=== PATIENT | male | born 1945 | race Caucasian/White ===

== ENCOUNTER → 2021-08-26 | Outpatient (CLI) | payer OTHER, MEDICARE ==
[~2021-08-26] MED LIST: CALTRATE-600 W1 EACH PO; CARVEDILOL6.25 M1 PO; LO-DOSE ASPIRIN81 M1 PO; LOSARTAN-HCTZ1 EAC3 PO; MULTI VITAMIN1 EACH PO; PRAVASTATIN SOD40 MG PO
== END ==
LOC: LAB 00:57
PROVIDERS: ATTEND Student in an Organized Health Care Education/Training Program
DX: Z01.812 Encounter for preprocedural laboratory examination (principal); Z20.822 Contact with and (suspected) exposure to COVID-19

== ENCOUNTER → 2021-08-28 | Outpatient (CLI) | payer OTHER ==
[~2021-08-28] VITALS: Ht 182.9 cm; Wt 112.5 kg
--- NOTE | 2021-08-28 16:11 | EKG ---
[facility] [place] [address] ELECTROCARDIOGRAM REPORT Name: REYNALDO DELGADO Room #: REG NORRIS Tijerina#: [id number] Admission: 08/28/21 Attend Phys: Jayy Collado Discharge: Date of : 49 Report #: [id number] [facility] Test Date: 2021-08-28 Test Time: 12:28:42 Pat Name: REYNALDO DELGADO Department: Room: Gender: Investor Relations Specialist: MAI : 1945 Requested By: Holli Jenkins Order Number: [id number] MD: Jono Edwards Measurements Intervals [place] Rate: 74 P: 48 VT: 189 QRS: 9 QRSD: 160 T: -25 QT: 425 QTc: 472 Interpretive Statements Sinus rhythm Right bundle branch block Inferior infarct, age indeterminate Baseline wander in lead(s) V2 No previous ECG available for comparison Electronically Signed On 08-28-2021 16:11:37 LEASING ASSISTANT by Jono Edwards [email or web address] <ELECTRONICALLY SIGNED> By: Jono Edwards MD, MERGED WITH [facility] 08/28/21 1611 1228 1228 Jono Edwards MD, FACC /EPI
--- NOTE | 2021-08-29 15:07 | PATH ---
[facility] [place] [address] PATHOLOGY RPT PROCEDURE Name: ALEXANDRO DELGADO Room #: REG [facility] Kenna.#: [id number] Admission: 08/28/21 Date of : 49 Discharge: Report #: [id number] Path Case #: [id number] [facility] Accession Number: [id number] . 01 Material submitted: . PART A: stomach - GASTRIC ULCER BIOPSY RULE OUT H. PYLORI. Modifiers: GASTRIC PART B: esophagus - DISTAL ESOPHAGUS RULE OUT RAMIREZ'S. Modifiers: distal PART C: colon - DESCENDING COLON POLYP. Modifiers: descending . 01 Clinical history: . DTS/COLONOSCOPY/HX OF POLYPS EGD REFLUX CHRONIC GASTRIC ULCERS . 02 Diagnosis: A. Gastric ulcer, biopsy: - Gastric antral mucosa with features of reactive gastropathy. - An H. pylori IHC is negative for H. pylori-like organism. . B. Distal esophagus, biopsy: - Ramirez's esophagus. - Negative for dysplasia and malignancy. . C. Descending colon polyp, polypectomy: - Tubular adenoma. - Negative for high-grade dysplasia or malignancy. . (ANK:soraya; 08/29/2021) MBIvana 08/29/2021 1323 Local . 02 Electronically signed: . Karishma Ward MD, Pathologist NPI- [id number] . 01 Gross description: . A. The specimen is received in formalin, labeled "Alexandro Delgado, gastric ulcer biopsy R/O H. pylori". Received are 2 segments of pale-dsouza tissue measuring 0.3 and 0.4 cm in maximum dimensions. The specimen is entirely submitted in cassette A1. . B. The specimen is received in formalin, labeled "Alexandro Delgado, distal esophagus, R/O Ramirez's". Received are 2 segments of pale-dsouza tissue measuring 0.3 and 0.4 cm in maximum dimensions. The specimen is entirely submitted in cassette B1. . [address] [address] PATHOLOGY RPT PROCEDURE Name: ALEXANDRO DELGADO [facility] [id number] Admission: 08/28/21 Date of : 49 Discharge: Report #: [id number] Path Case #: [id number] C. The specimen is received in formalin, labeled "Alexandro Delgado, descending colon polyp". Received are 2 segments of pale-dsouza tissue both measuring 0.3 cm in maximum dimensions. The specimen is entirely submitted in cassette C1. ([facility]; 08/28/2021) NRI/NRI 08/28/2021 2117 Local . 02 Pathologist provided ICD-10: K22.70, D12.4, K21.9 . 02 CPT . 491524, 309978, 935568, D13709 Specimen Comment: A courtesy copy of this report has been sent to [phone], [phone] Specimen Comment: [phone] Specimen Comment: Report sent to / DR GILBERT Performed at: [address], [place] [id number] MD Dami Chang MD Phone: [phone] Performed at: [address] [id number] MD Karishma Ward MD Phone: [phone]
--- NOTE | 2021-09-04 08:49 | P ---
[facility] [place] [address] PROCEDURE REPORT Name: REYNALDO DELGADO Room #: REG [facility] Breezy#: [id number] Admission: 08/28/21 Attend Phys: Jayy Collado Discharge: Date of : 49 Report #: [id number] THIS REPORT FOR: cc: Physician not on staff Physician not on staff Jayy Bailey MD ~ cc: DATE OF SERVICE: 08/28/2021 PROCEDURE PERFORMED: Upper endoscopy with biopsies. HISTORY OF PRESENT ILLNESS: The patient is a 75-year-old male with a history of EGD in 2014 that did show grade A erosive esophagitis and gastritis was noted. Biopsies at that time were negative for H. pylori. He denies any significant heartburn symptoms at this time. No nausea or vomiting. No dysphagia. Plan is for EGD and colonoscopy today. DESCRIPTION OF PROCEDURE: The risks and benefits of the procedure were explained to the patient, those risks including but not limited to bleeding, perforation and the risk of sedation. He understood these risks and gave informed consent. Sedation was given using propofol per Anesthesia. Next, using a standard Olympus upper endoscope, the scope was placed in the patient's mouth and advanced under direct vision through the esophagus, stomach and into the second portion of the duodenum. The larynx was normal in appearance. The upper and midesophagus was normal. In the distal esophagus, a possible short segment of Colon's esophagus was noted. Biopsies were obtained. Overall, the gastric mucosa was normal in the fundus and upper body; however, in the midbody and antrum, gastritis with multiple ulcerations noted in the gastric antrum. No evidence of bleeding. Biopsies were obtained to rule out H. pylori. The pylorus was normal and patent. The duodenal bulb, first and second portion were all normal. The scope was then withdrawn and the procedure terminated. The patient tolerated the procedure well. IMPRESSION: 1. Gastric body and antral ulcers. 2. Possible short segment Colon's. 3. Otherwise, normal upper endoscopy. RECOMMENDATIONS: 1. Await biopsy results. 2. Recommend daily PPI therapy. 3. We will proceed with colonoscopy next today. [facility] [address] [place] [address] PROCEDURE REPORT Name: REYNALDO DELGADO Room #: REG [facility] Kenna.#: [id number] Admission: 08/28/21 Attend Phys: Jayy Collado Discharge: Date of : 49 Report #: [id number] Thank you for allowing me to participate in his care. <ELECTRONICALLY SIGNED> By: Jayy Bailey MD 09/04/21 0849 1043 1136 Jayy Bailey MD /nt
--- NOTE | 2021-09-04 08:49 | P ---
[facility] [place] [address] [place] [address] PROCEDURE REPORT Name: REYNALDO DELGADO [id number] Admission: 08/28/21 Attend Phys: Jayy Collado Discharge: Date of : 49 Report #: [id number] THIS REPORT FOR: cc: Physician not on staff Physician not on staff Jayy Bailey MD ~ cc: ____ ____ DATE OF SERVICE: 08/28/2021 PROCEDURE PERFORMED: Colonoscopy with biopsies. HISTORY OF PRESENT ILLNESS: The patient is a 75-year-old male who underwent a colonoscopy in 2014. Adenomatous polyp was removed at that time. He is here for routine followup. He reports his bowel movements have been normal. No family history of colon cancer. DESCRIPTION OF PROCEDURE: The risks and benefits of the procedure were explained to the patient, those risks including, but not limited to bleeding, perforation, and the risk of sedation. He understood these risks and gave informed consent. Sedation was given using propofol per anesthesia. Next, a digital rectal exam was initially performed, which was normal. Next, using a standard Olympus colonoscope, the scope was placed in the patient's anus and advanced under direct vision to the cecum. The overall prep was good. The cecum and ileocecal valve were normal in appearance. The ascending and transverse colon were normal. In the descending colon, a 4-mm sessile polyp was noted. This was removed with cold forceps, otherwise normal. The sigmoid colon was normal. The rectal mucosa was normal. On retroflexion, small nonbleeding internal hemorrhoids were noted. The scope was then withdrawn and the procedure terminated. The patient tolerated the procedure well. IMPRESSION: 1. Small colonic polyp. 2. Small internal hemorrhoids. 3. Otherwise, normal colonoscopy. RECOMMENDATIONS: 1. Await biopsy results. 2. If polyp is adenomatous polyp, repeat in 5 years. If hyperplastic, consider repeat in 10 years. [facility] [address] [place] [address] PROCEDURE REPORT Name: REYNALDO DELGADO Room #: REG [facility]#: [id number] Admission: 08/28/21 Attend Phys: Jayy Collado Discharge: Date of : 49 Report #: [id number] Thank you for allowing me to participate in his care. <ELECTRONICALLY SIGNED> By: Jayy Bailey MD 09/04/21 0849 1112 1806 Jayy Bailey MD /nt
== END | disposition home or self-care (01) ==
LOC: GI → EDSEX → GI 07-12 00:13
PROVIDERS: ATTEND Specialist
DX: Z12.11 Encounter for screening for malignant neoplasm of colon (principal); Z86.010 Personal history of colon polyps; D12.4 Benign neoplasm of descending colon; K64.8 Other hemorrhoids; K31.9 Disease of stomach and duodenum, unspecified; K22.70 Barrett's esophagus without dysplasia; I10 Essential (primary) hypertension; E78.5 Hyperlipidemia, unspecified; K21.9 Gastro-esophageal reflux disease without esophagitis; Z98.890 Other specified postprocedural states; Z79.899 Other long term (current) drug therapy; Z88.8 Allergy status to other drugs, medicaments and biological substances
CPT/HCPCS: 62110; 62900